=== PATIENT | female | born 1950 | race Caucasian/White ===

== ENCOUNTER 2017-12-25 18:46 | Inpatient (IN) | payer MEDICARE, OTHER ==
[~2017-12-25] VITALS: Ht 162.6 cm; Wt 76.9 kg
[2017-12-25 20:00] VITALS: BP 131/83; PULSE 74; RESP 18; TEMP 98.6; O2SAT 97
[2017-12-25] MEDS ORDERED: LORazepam 2 MG/ML VIAL IM PRN (20:45)
[2017-12-25] MEDS ORDERED: MAGNESIUM HYDROXIDE SUSP 30 ML CUP PO PRN (20:45)
[2017-12-25] MEDS ORDERED: ACETAMINOPHEN 325 MG TAB PO PRN (20:45)
[2017-12-25] MEDS ORDERED: ALUMINUM/MAGNESIUM/SIMETH 30 ML CUP PO PRN (20:45)
[2017-12-25] MEDS ORDERED: diphenhydrAMINE HCL 50 MG CAP - HS PRN PO (20:45)
[2017-12-25] MEDS ORDERED: LORazepam 0.5 MG TAB PO PRN (20:45)
[2017-12-25] MEDS ORDERED: diphenhydrAMINE HCL 50 MG/ML VIAL - HS PRN IM (20:45)
[2017-12-25] MEDS ORDERED: REMOVE OLD NICOTINE PATCH T-DERMAL SCH (21:00)
[2017-12-25] MEDS ORDERED: LORazepam 1 MG TAB PO ONE (23:00)
[2017-12-26 05:19] VITALS: BP 108/64; PULSE 73; RESP 17; TEMP 97.6; O2SAT 97
[2017-12-26 07:05] LABS: BICARBONATE 30.8 MEQ/L (21.0-32.0); BLOOD UREA NITROGEN 8 MG/DL (7-18); CALCIUM 9.4 MG/DL (8.5-10.1); CHLORIDE 103 MEQ/L (98-107); CREATININE 0.79 MG/DL (0.50-1.00); GLOMERULAR FILTRATION RATE 73 ML/MIN (>89); GLUCOSE,RANDOM 98 MG/DL (74-106); SODIUM (NA) 139 MEQ/L (136-145)
[2017-12-26 07:06] LABS: CHOLESTEROL 258 MG/DL (120-200); TRIGLYCERIDES 106 MG/DL (42-150)
[2017-12-26 07:08] LABS: CHOLESTEROL/ HDL RATIO 4.26 RATIO; HDL CHOLESTEROL 60.5 MG/DL (40.0-60.0); LDL CHOLESTEROL 176 MG/DL (0-99)
[2017-12-26] MEDS ORDERED: NICOTINE 21 MG/24 HR PATCH T-DERMAL SCH (09:00)
[2017-12-26] MEDS ORDERED: LORazepam 1 MG TAB PO STA (13:44)
--- NOTE | 2017-12-26 13:59 | HHI.HP ---
Provisional Diagnosis Admission Date Dec 25, 2017 at 20:00 [place]. Adjustment disorder with mixed anxiety and depressed mood, f 43.23, dysthymic disorder chronic f 34.1 Certification of Person's Competence To Provide Express and Informed Consent I have personally examined Trini Ivy , a person being served at [facility] on, Dec 26, 2017 13:41. Express and informed consent means consent voluntarily given in writing, by a competent person, after sufficient explanation and disclosure of the subject matter involved to enable the person to make a knowing and willful decision without any element of force, fraud, deceit, duress, or other form of constraint or coercion. This person is 18 years of age or older, is not now known to be incompetent to consent to treatment with a guardian advocate, and does not have a health care surrogate or proxy currently making medical treatment decisions. I have found this person to be one of the following: [xxx] Competent to provide express and informed consent, as defined above, for voluntary admission to this facility and is competent to provide express and informed consent for treatment. He/she has the consistent capacity to make well reasoned, willful, and knowing decisions concerning his or her medical or mental health treatment. The person fully and consistently understands the purpose of the admission for examination/placement and is fully capable of personally exercising all rights assured [place] Incompetent to provide express and informed consent to voluntary admission, and this is incompetent to provide express and informed consent to treatment. The person must be transferred to involuntary status and a petition for a guardian advocate filed with the Circuit Court. [] Refusing to provide express and informed consent to voluntary admission but is competent to provide express and informed consent for treatment. The person must be discharged or transferred to involuntary status. Form shall be completed within 24 hours of a person's arrival at the receiving facility and filed in the clinical record of each person: 1. Admitted on a voluntary basis 2. Permitted to provide express and informed consent to his/her own treatment 3. Allowed to transfer from involuntary to voluntary status 4. Prior to permitting a person to consent to his or her own treatment after having been previously found incompetent to consent to treatment. History of Present Illness Capacity: Has Capacity HPI Patient is a 67-year-old white female who comes here under [place] act signed by a terrance risado dated 12/25/17 at 1500 hrs. best essentially stating patient states she thinks she would hurt herself. Patient initially seen and screened a local hospital. Medically cleared at that facility. Urine toxicology positive for benzodiazepines negative for alcohol. And transferred here under the [place]man act. Patient seen in her room with VIRY Gao. Patient calm cooperative stating that she had gone to the local hospital because of increased anxiety and chest pain with shortness of breath. She is medically cleared. During that period of time she was asked if she felt like calm herself and she made of a statement to that effect. Which was construed as suicidality related to her being [place] acted and transferred here. At the present time patient denies suicidal homicidal ideation intent or plan. Denies any voices or visions. States she has moved down here from [place] about 4 -5 months ago due to her inability to find a place to stay or employment. She states she has been from her for 7 years though the remain good friends. This led to her calling him he in finding her down here, she now living with them and his house. They have been for about 46 years. Still consider himself best friends. However there've been various deaths in the family over the past 6 months or so. This is led to some increased overall anxiety with the patient. Patient denies any prior psychiatric contact or hospitalizations. She has been on various antidepressants in the past. At the present time she sees her primary care doctor will switch her from Lexapro to 40 mg of Celexa about 2 weeks ago. She also has been on 1 mg of Ativan 3 times a day for an extended period of time. She does have good support at home. Good support by her children. As mentioned above she does denies suicidality. We did discuss options for this lady. If she does not meet Tillman criteria though she would need to be followed by a psychiatrist along with getting some community-based individual counseling patient is willing to do that. Necessary suggestion continue her Celexa at the present dose continue her Ativan 1 mg 3 times a day. We'll give her a dose of Ativan here before she is discharged. Patient to be discharged to her . Counseling will help arrange for psychiatric follow-up in her local area and [place]. Patient denies any physical or sexual abuse, denies mental health issues in the family. Review of Systems Constitutional: DENIES: Diaphoretic episodes, Fatigue, Fever, Weight gain, Weight loss, Chills, Dizziness, Change in appetite, Night Sweats Endocrine: DENIES: Abnorml menstrual pattern, Heat/cold intolerance, Polydipsia , Polyuria, Polyphagia Eyes: DENIES: Blurred vision, Diplopia, Eye inflammation, Eye pain, Vision loss , Photosensitivity, Double Vision Ears, nose, mouth, throat: DENIES: Tinnitus, Hearing loss, Vertigo, Nasal discharge, Oral lesions, Throat pain, Hoarseness, Ear Pain, Running Nose, Epistaxis, Sinus Pain, Toothache, Odynophagia Respiratory: DENIES: Apneas, Cough, Snoring, Wheezing, Hemoptysis, Sputum production, Shortness of breath Cardiovascular: DENIES: Chest pain, Palpitations, Syncope, Dyspnea on Exertion , PND, Lower Extremity Edema, Orthopnea, Claudication Gastrointestinal: DENIES: Abdominal pain, Black stools, Bloody stools, Constipation, Diarrhea, Nausea, Vomiting, Difficulty Swallowing, Anorexia Genitourinary: DENIES: Abnormal vaginal bleeding, Dysmenorrhea, Dyspareunia, Sexual dysfunction, Urinary frequency, Urinary incontinence, Urgency, Hematuria , Dysuria, Nocturia, Vaginal discharge Musculoskeletal: DENIES: Joint pain, Muscle aches, Stiffness, Joint Swelling, Back pain, Neck pain Integumentary: DENIES: Abnormal pigmentation, Pruritus, Rash, Nail changes, Breast masses, Breast skin changes, Nipple discharge Immunologic/allergic: DENIES: Eczema, Urticaria Neurologic: DENIES: Abnormal gait, Headache, Localized weakness, Paresthesias, Seizures, Speech Problems, Tremor, Poor Balance Psychiatric: COMPLAINS OF: Anxiety, Depression Past Psych History Psychological trauma history Patient denies Violence risk - others (6 mos) Low Violence risk - self (6 mos) Low Substance Abuse History Drugs/Alcohol past 12 months 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, has stopped smoking 6 years ago Past Family Social History Coded Allergies: No Known Allergies (Unverified , 12/25/17) Current Medications Medications (Trade) Dose Ordered Sig/Trini Route Start Time Stop Time Status Last Admin (Ativan) 0.5 mg Q6H PRN PO 12/25/17 20:45 12/26/17 08:30 (Ativan Inj) 0.5 mg Q12H PRN IM 12/25/17 20:45 (Benadryl) 50 mg HS PRN PO 12/25/17 20:45 (Benadryl Inj) 50 mg HS PRN IM 12/25/17 20:45 (Tylenol) 650 mg Q4H PRN PO 12/25/17 20:45 (Milk Of Magnesia Liq) 30 ml DAILY PRN PO 12/25/17 20:45 (Mag-Al Plus Susp Liq) 30 ml Q6H PRN PO 12/25/17 20:45 (Habitrol 21 Mg Patch.24 Hr) 1 patch DAILY T-DERMAL 12/26/17 09:00 Miscellaneous Information 1 HS T-DERMAL 12/25/17 21:00 Family Psych History Patient denies Social History Patient has moved in with her of 46 years. Though they have been for 7 years she states she is also very much but is not "in love" with him Patient's Strengths (min. 2) Patient verbal irritable access healthcare has supportive Physical Exam Patient medically cleared at local hospital, at the present time patient sitting quietly in room she is in no acute distress, no respiratory distress, no complaints of abdominal pain. Patient was also 4 extremities without difficulty Vital Signs Vital Signs Date Time Temp Pulse Resp B/P (MAP) Pulse Ox O2 Delivery O2 Flow Rate FiO2 12/26/17 05:19 97.6 73 17 108/64 (79) 97 Lab Results Test 12/26/17 06:01 Blood Urea Nitrogen 8 MG/DL Creatinine 0.79 MG/DL Random Glucose 98 MG/DL Calcium Level 9.4 MG/DL Sodium Level 139 MEQ/L Potassium Level 3.9 MEQ/L Chloride Level 103 MEQ/L Carbon Dioxide Level 30.8 MEQ/L Anion Gap 5 MEQ/L Estimat Glomerular Filtration Rate 73 ML/MIN Triglycerides Level 106 MG/DL Cholesterol Level 258 MG/DL LDL Cholesterol 176 MG/DL HDL Cholesterol 60.5 MG/DL Cholesterol/HDL Ratio 4.26 RATIO Mental Status Examination Appearance: Appropriate Consciousness: Alert Orientation: x4 Motor Activity: Normal gait Speech: Unremarkable Language: Adequate Fund of Knowledge: Adequate Attention and Concentration: Adequate Memory: Unremarkable Mood: Other (euthymic to mildly dysphoric and anxious) Affect: Other (good range and intensity) Thought Process & Associations: Intact Thought Content: Appropriate Hallucination Type: None Delusion Type: None Suicidal Ideation: No Suicidal Plan: No Suicidal Intention: No Homicidal Ideation: No Homicidal Plan: No Homicidal Intention: No Insight: Adequate Judgment: Adequate Assessment & Plan Problem List: (1) Dysthymic disorder ICD Codes: F34.1 - Dysthymic disorder Status: Chronic (2) Adjustment disorder with mixed anxiety and depressed mood ICD Codes: F43.23 - Adjustment disorder with mixed anxiety and depressed mood Status: Acute Assessment & Plan Estimated LOS: days patient does not meet Tillman criteria. Will discharge patient to her today, no Rx by me, she may continue her Celexa and Ativan at the present scheduled dosages. Will refer patient to psychiatric services in her area along with counseling services. The been no Rx by me patient has sufficient medication at home to get refills from her primary care physician Discharge Planning See above Request HC Surrog/Guard Advoc?: No Silviano Fletcher MD Dec 26, 2017 13:59
--- NOTE | 2017-12-26 14:04 | HHI.DS ---
Psychiatry Discharge Summary Inpatient Psychiatric care?: Yes Advance Directive: No Reason Not Provided: Due to Patient Condition Mental Health AdvanceDirective: No Health Care Proxy: No Admission Admission Date Dec 25, 2017 at 20:00 Admission Diagnosis: (1) Adjustment disorder with mixed anxiety and depressed mood ICD Code: F43.23 - Adjustment disorder with mixed anxiety and depressed mood (2) Dysthymic disorder ICD Code: F34.1 - Dysthymic disorder Brief History Patient is a 67-year-old white female who comes here under [place] act signed by an stephens dated 12/25/17 at 1500 hrs. best essentially stating patient states she thinks she would hurt herself. Patient initially seen and screened a local hospital. Medically cleared at that facility. Urine toxicology positive for benzodiazepines negative for alcohol. And transferred here under the [place]man act. Patient seen in her room with VIRY Gao. Patient calm cooperative stating that she had gone to the local hospital because of increased anxiety and chest pain with shortness of breath. She is medically cleared. During that period of time she was asked if she felt like calm herself and she made of a statement to that effect. Which was construed as suicidality related to her being [place] acted and transferred here. At the present time patient denies suicidal homicidal ideation intent or plan. Denies any voices or visions. States she has moved down here from [place] about 4 -5 months ago due to her inability to find a place to stay or employment. She states she has been from her for 7 years though the remain good friends. This led to her calling him he in finding her down here, she now living with them and his house. They have been for about 46 years. Still consider himself best friends. However there've been various deaths in the family over the past 6 months or so. This is led to some increased overall anxiety with the patient. Patient denies any prior psychiatric contact or hospitalizations. She has been on various antidepressants in the past. At the present time she sees her primary care doctor will switch her from Lexapro to 40 mg of Celexa about 2 weeks ago. She also has been on 1 mg of Ativan 3 times a day for an extended period of time. She does have good support at home. Good support by her children. As mentioned above she does denies suicidality. We did discuss options for this lady. If she does not meet Tillman criteria though she would need to be followed by a psychiatrist along with getting some community-based individual counseling patient is willing to do that. Necessary suggestion continue her Celexa at the present dose continue her Ativan 1 mg 3 times a day. We'll give her a dose of Ativan here before she is discharged. Patient to be discharged to her . Counseling will help arrange for psychiatric follow-up in her local area and [place]. Patient denies any physical or sexual abuse, denies mental health issues in the family. Tobacco Use In Past 30 Days: No Tobacco Past 30 Days (patient has had no tobacco in 5 years) Alcohol Use: Never (patient recovering alcoholic has had sobriety for 11 years) Hospital Course Please see above brief history patient does not meet criteria for involuntary psychiatric hospitalization. She is to be discharged to herself, no Rx by me, she may continue her own home schedule medications, counselor to help refer patient to psychiatric services and counseling in her home area and [place] Results Blood Pressure 108 / 64 Vital Signs Date Time Temp Pulse Resp B/P (MAP) Pulse Ox O2 Delivery O2 Flow Rate FiO2 12/26/17 05:19 97.6 73 17 108/64 (79) 97 Laboratory Tests Test 12/26/17 06:01 Estimat Glomerular Filtration Rate 73 ML/MIN (>89) Cholesterol Level 258 MG/DL (120-200) LDL Cholesterol 176 MG/DL (0-99) HDL Cholesterol 60.5 MG/DL (40.0-60.0) Laboratory Results Test 12/26/17 06:01 Cholesterol Level 258 MG/DL (120-200) HDL Cholesterol 60.5 MG/DL (40.0-60.0) LDL Cholesterol 176 MG/DL (0-99) Triglycerides Level 106 MG/DL (42-150) Summary of Procedures None done Pending results at discharge: No Medications # of Antipsychotic meds at D/C: 0 Approp Antipsych med options 1 - Minimum of three failed multiple trials of monotherapy. 2 - Documented plan to taper to monotherapy due to previous use of multiple meds OR cross-taper in progress at D/C. 3 - Documentation of augmentation of Clozapine. 4 - Justification other than those listed in allowable values 1-3, document here : Discharge Discharge Date: Dec 26, 2017 Discharge Diagnosis: (1) Adjustment disorder with mixed anxiety and depressed mood Diagnosis: Principal ICD Code: F43.23 - Adjustment disorder with mixed anxiety and depressed mood Status: Acute (2) Dysthymic disorder Diagnosis: Secondary ICD Code: F34.1 - Dysthymic disorder Status: Chronic Pt Condition on Discharge: Stable Discharge Disposition: Discharge Home Discharge Instructions Diet Instructions: As Tolerated, No Restrictions Activities you can perform: Regular-No Restrictions Scheduled Appointment: follow-up psychiatric services and counseling in the [facility] Discharge Time > 30 minutes Mental Status Examination Appearance: Appropriate Consciousness: Alert Orientation: x4 Motor Activity: Normal gait Speech: Unremarkable Language: Adequate Fund of Knowledge: Adequate Attention and Concentration: Adequate Memory: Unremarkable Mood: Other (euthymic to mildly dysphoric and anxious) Affect: Other (good range and intensity) Thought Process & Associations: Intact Thought Content: Appropriate Hallucination Type: None Delusion Type: None Suicidal Ideation: No Suicidal Plan: No Suicidal Intention: No Homicidal Ideation: No Homicidal Plan: No Homicidal Intention: No Insight: Adequate Judgment: Adequate Discharge/Advance Care Plan Health Problems: (1) Dysthymic disorder (2) Adjustment disorder with mixed anxiety and depressed mood Goals to promote your health * To prevent worsening of your condition and complications * To maintain your health at the optimal level Directions to meet your goals Take your medications as prescribed Follow your dietary instruction Follow activity as directed Keep your appointments as scheduled Take your immunizations and boosters as scheduled If your symptoms worsen call your PCP, if no PCP go to Urgent Care Center or Emergency Room For 22/05 questions related to your inpatient stay or results of tests pending at discharge, please contact Dr. Silviano Fletcher at Smoking is Dangerous to Your Health. Avoid second hand smoking Silviano Fletcher MD Dec 26, 2017 14:04
[2017-12-26 15:42] LABS: HEMOGLOBIN A1C 5.5 % (4.3-6.0)
== END 2017-12-26 16:55 | disposition home or self-care (01) | DRG 882 ==
LOC: H250 20:00 → H260 12-26 08:45
PROVIDERS: ADMIT Psychiatry & Neurology Psychiatry; ATTEND Psychiatry & Neurology Psychiatry
DX: F43.23 Adjustment disorder with mixed anxiety and depressed mood (principal); F34.1 Dysthymic disorder; F10.21 Alcohol dependence, in remission; Z87.891 Personal history of nicotine dependence
CPT/HCPCS: 80048; 80061; 83036